=== PATIENT | male | born 1945 | race Caucasian/White ===

== ENCOUNTER 2019-07-19 09:43 | Emergency (ER) | payer OTHER ==
[~2019-07-19] VITALS: Ht 180.3 cm; Wt 123.4 kg
[2019-07-19 10:23] LABS: BASO # 0.1 10*3/uL (0.0-0.1); BASO % 0.6 % (0.0-1.0); EOS # 0.2 10*3/uL (0.0-0.4); HEMOGLOBIN 13.2 g/dl (14.0-18.0); LYMPH # 1.5 10*3/uL (1.3-4.4); LYMPH % 18.1 % (27.0-41.0); MEAN CELL VOLUME 86.3 fl (80.0-94.0); MEAN CORPUSCULAR HGB 27.8 pg (27.0-31.0); MEAN CORPUSCULAR HGB CONC 32.2 g/dl (33.0-37.0); MEAN PLATELET VOLUME 10.6 fl (9.6-12.3); MONO # 0.5 10*3/uL (0.1-1.0); MONO % 6.2 % (3.0-9.0); NEUT # 6.2 10*3/uL (2.3-7.9); NEUT % 72.9 % (47.0-73.0); PLATELET COUNT AUTOMATED 257 10*3/uL (130-400); RED BLOOD COUNT 4.75 10*6/uL (4.50-5.90); RED CELL DISTRI WIDTH 13.8 % (0-14.5); WHITE BLOOD COUNT 8.4 10*3/uL (4.8-10.8)
[2019-07-19 10:33] LABS: ACT PARTIAL THROMBO TIME 25.4 SECONDS (20.0-32.1)
[2019-07-19 10:40] LABS: ALBUMIN 3.7 gm/dl (3.1-4.5); BUN 16 mg/dl (7-24); CHLORIDE 102 mmol/L (98-107); CREATININE 1.36 mg/dL (0.70-1.30); POTASSIUM 2.9 mmol/L (3.5-5.1); SGPT/ALT 25 U/L (12-78); SODIUM 145 mmol/L (136-145)
[2019-07-19 10:42] LABS: ALKALINE PHOSPHATASE 105 U/L (45-117); SGOT/AST 15 IU/L (3-35)
[2019-07-19] MEDS ORDERED: MAGNESIUM OXID420 M1 PO (11:52)
[2019-07-19] MEDS ORDERED: POTASSIUM CHLO20 ME3 PO (11:52)
== END 2019-07-19 11:57 | disposition home or self-care (01) ==
LOC: ED 09:43
PROVIDERS: Emergency Medicine
DX: E83.42 Hypomagnesemia (principal); E87.6 Hypokalemia; R79.1 Abnormal coagulation profile; I10 Essential (primary) hypertension; E11.9 Type 2 diabetes mellitus without complications; Z91.040 Latex allergy status; Z87.891 Personal history of nicotine dependence

== ENCOUNTER 2019-09-03 11:27 | Inpatient (IN) | payer OTHER, MEDICARE ==
[~2019-09-03] VITALS: Ht 172.7 cm; Wt 122.5 kg
[2019-09-03 11:27] VITALS: BP 154/74
[~2019-09-03 11:27] MED LIST: MAGNESIUM OXID420 M1 PO; POTASSIUM CHLO20 ME3 PO
[2019-09-03 12:03] LABS: BASO % 0.5 % (0.0-1.0); EOS # 0.1 10*3/uL (0.0-0.4); EOS % 1.5 % (1.0-4.0); HEMATOCRIT 40.4 % (42.0-52.0); LYMPH # 1.3 10*3/uL (1.3-4.4); LYMPH % 15.8 % (27.0-41.0); MEAN CELL VOLUME 86.5 fl (80.0-94.0); MEAN CORPUSCULAR HGB 27.8 pg (27.0-31.0); MEAN CORPUSCULAR HGB CONC 32.2 g/dl (33.0-37.0); MEAN PLATELET VOLUME 10.9 fl (9.6-12.3); MONO # 0.5 10*3/uL (0.1-1.0); MONO % 6.5 % (3.0-9.0); NEUT # 6.2 10*3/uL (2.3-7.9); NEUT % 75.5 % (47.0-73.0); PLATELET COUNT AUTOMATED 217 10*3/uL (130-400); RED BLOOD COUNT 4.67 10*6/uL (4.50-5.90); WHITE BLOOD COUNT 8.3 10*3/uL (4.8-10.8)
[2019-09-03 12:17] LABS: INTERNATIONAL NORM RATIO 1.1 (2.0-3.5)
--- NOTE | 2019-09-03 12:18 | NUR ---
RESTING IN BED SEMI FOWLERS POSITION, EYES CLOSED, RESPS EASY. AT BEDSIDE.
[2019-09-03 12:20] LABS: ALBUMIN 3.6 gm/dl (3.1-4.5); ALKALINE PHOSPHATASE 90 U/L (45-117); BUN 13 mg/dl (7-24); CHLORIDE 102 mmol/L (98-107); CREATININE 1.21 mg/dL (0.70-1.30); POTASSIUM 2.8 mmol/L (3.5-5.1); SGOT/AST 19 IU/L (3-35); SGPT/ALT 22 U/L (12-78); SODIUM 143 mmol/L (136-145); TOTAL PROTEIN 6.9 gm/dL (6.4-8.2)
[2019-09-03 12:22] LABS: TROPONIN I 0.056 ng/ml (<0.045)
[2019-09-03 13:35] VITALS: BP 160/77
--- NOTE | 2019-09-03 13:52 | NUR ---
[facility] , under the services of SANTANA Blanc DO with a diagnosis of ELECTROLYTE IMBALANCE. Chief complaint is TINGLING/NUMBNESS. Patient arrived via bed from ER. Monitor applied. Initial assessment completed. Vital signs taken and recorded. SANTANA BLANC DO notified of admission to the unit. Orders received. See assessment for past medical history, medications and allergies. Patient and/or family oriented to unit. [facility]. Clothing/patient valuable form completed. PAVITHRA LEBRON
[2019-09-03 14:33] VITALS: BP 142/64
[2019-09-03] MEDS ORDERED: POTASSIUM CHLO20 ME4 PO (15:05)
--- NOTE | 2019-09-03 15:24 | NUR ---
DR ORLANDO BNOTIFIED OF CRITICAL TROPONIN.
[2019-09-03 15:59] LABS: ALKALINE PHOSPHATASE 94 U/L (45-117); BUN 12 mg/dl (7-24); CHLORIDE 100 mmol/L (98-107); CREATININE 1.24 mg/dL (0.70-1.30); POTASSIUM 3.2 mmol/L (3.5-5.1); SGOT/AST 20 IU/L (3-35); SGPT/ALT 23 U/L (12-78); SODIUM 144 mmol/L (136-145); TOTAL PROTEIN 7.4 gm/dL (6.4-8.2)
[2019-09-03 16:00] VITALS: BP 98/74
--- NOTE | 2019-09-03 16:02 | NUR ---
DR ORLANDO CALLED AND NOTIFIED OF CRITICAL CALCIUM
--- NOTE | 2019-09-03 17:29 | NUR ---
DR ORLANDO NOTIFIED OF CRITICAL TROPONIN
--- NOTE | 2019-09-03 17:40 | NUR ---
DR RANDOLPH PAGED FOR CONSULT VIA ANSWERING SERVICE
[2019-09-03 20:00] VITALS: BP 157/68
[2019-09-03 20:12] LABS: COLOR YELLOW (YELLOW)
[2019-09-03 20:13] LABS: BILIRUBIN NEGATIVE (NEGATIVE); BLOOD NEGATIVE (NEGATIVE); CLARITY CLEAR (CLEAR); GLUCOSE NEGATIVE (NEGATIVE); KETONE NEGATIVE (NEGATIVE); LEUKO ESTERASE NEGATIVE (NEGATIVE); NITRITE NEGATIVE (NEGATIVE); PH 6.5 (5.0-9.0); SPECIFIC GRAVITY 1.015 (1.005-1.030); UROBILINOGEN 0.2 E.U./dl (0.2-1.0)
[2019-09-03 21:09] LABS: ALBUMIN 3.6 gm/dl (3.1-4.5); ALKALINE PHOSPHATASE 90 U/L (45-117); BUN 14 mg/dl (7-24); CHLORIDE 101 mmol/L (98-107); CREATININE 1.31 mg/dL (0.70-1.30); POTASSIUM 3.2 mmol/L (3.5-5.1); SGOT/AST 15 IU/L (3-35); SGPT/ALT 22 U/L (12-78); SODIUM 142 mmol/L (136-145); TOTAL PROTEIN 6.8 gm/dL (6.4-8.2)
--- NOTE | 2019-09-03 21:46 | NUR ---
NOTIFIED OF CRITICAL CALCIUM OF 6.9. NEW ORDERS RECEIVED.
--- NOTE | 2019-09-03 22:00 | NUR ---
24 HOUR URINE BEGAN AT THIS TIME.
[2019-09-04] VITALS: BP 151/61
--- NOTE | 2019-09-04 02:48 | NUR ---
24 HR chart check completed.
[2019-09-04 06:15] LABS: BASO # 0.1 10*3/uL (0.0-0.1); BASO % 0.8 % (0.0-1.0); EOS # 0.1 10*3/uL (0.0-0.4); EOS % 1.7 % (1.0-4.0); HEMATOCRIT 40.9 % (42.0-52.0); LYMPH # 1.2 10*3/uL (1.3-4.4); LYMPH % 15.5 % (27.0-41.0); MEAN CELL VOLUME 86.1 fl (80.0-94.0); MEAN CORPUSCULAR HGB 27.4 pg (27.0-31.0); MEAN CORPUSCULAR HGB CONC 31.8 g/dl (33.0-37.0); MEAN PLATELET VOLUME 11.1 fl (9.6-12.3); MONO # 0.5 10*3/uL (0.1-1.0); NEUT # 5.7 10*3/uL (2.3-7.9); NEUT % 74.7 % (47.0-73.0); PLATELET COUNT AUTOMATED 245 10*3/uL (130-400); RED BLOOD COUNT 4.75 10*6/uL (4.50-5.90); WHITE BLOOD COUNT 7.6 10*3/uL (4.8-10.8)
[2019-09-04 06:17] LABS: ALBUMIN 3.7 gm/dl (3.1-4.5); BUN 14 mg/dl (7-24); CHLORIDE 103 mmol/L (98-107); CHOLESTEROL 115 mg/dL (<200); CREATININE 1.19 mg/dL (0.70-1.30); PHOSPHOROUS 3.2 mg/dL (2.5-4.9); SGOT/AST 15 IU/L (3-35); SGPT/ALT 21 U/L (12-78); SODIUM 142 mmol/L (136-145); TOTAL PROTEIN 6.8 gm/dL (6.4-8.2); TRIGLYCERIDES 92 mg/dl (<150); VLDL CHOLESTEROL 18 mg/dL (6-40)
[2019-09-04 06:23] LABS: ALKALINE PHOSPHATASE 82 U/L (45-117); FREE T4 1.06 ng/dl (0.76-1.46); HDL CHOLESTEROL 39 mg/dl (40-60); LDL CHOLESTEROL 58 mg/dL (9-159)
--- NOTE | 2019-09-04 06:59 | NUR ---
NOTIFIED OF PTS POTASSIUM LEVEL OF 3.0
--- NOTE | 2019-09-04 07:20 | NUR ---
ARRIVED ON SHIFT,INTRODUCED TO PATIENT,BED IN LOW POSITION. WHEEL LOCKS ENGAGED, CALL LIGHT WITHIN REACH, PATIENT AGREEABLE TO STUDENT NURSE BEING ASSIGNED, NO NEEDS VOICED AT THIS TIME, WHITE BOARD UPDATED.
[2019-09-04 08:00] VITALS: BP 148/62
--- NOTE | 2019-09-04 08:16 | NUR ---
PATIENT RESTING IN BED COMFORTABLY AT TIME OF ASSESSMENT, NO COMPLAINTS AT THIS TIME, WILL CONTINUE TO MONITOR FOR S/S OF PAIN AND DISTRESS. MARC TAYLOR SPNRCC
--- NOTE | 2019-09-04 08:54 | NUR ---
Shift chart check completed.
--- NOTE | 2019-09-04 09:52 | NUR ---
PATIENT SITTING UP IN BED, EKG COMPLETED, WAITING FOR FAMILY TO VISIT BEFORE GETTING CLEANED UP. MARC TAYLOR [facility]
[2019-09-04] MEDS ORDERED: ATORVASTATIN CA80 M1 PO (09:58)
[2019-09-04] MEDS ORDERED: NEURONTIN300 MG PO (09:59)
[2019-09-04] MEDS ORDERED: ASPIR LOW81 MG PO (09:59)
[2019-09-04] MEDS ORDERED: OMEPRAZOLE MAGN20 MG PO (10:01)
[2019-09-04] MEDS ORDERED: B121000 MCG/1 IM (10:03)
[2019-09-04] MEDS ORDERED: Nizoral 2%15 GM T (10:04)
[2019-09-04] MEDS ORDERED: INSULIN AS100 UNIT/3 SQ (10:05)
[2019-09-04] MEDS ORDERED: LISINOPRIL40 MG PO (10:07)
[2019-09-04] MEDS ORDERED: METFORMIN HCL500 M2 PO (10:09)
[2019-09-04] MEDS ORDERED: MIRTAZAPINE45 MG PO (10:10)
[2019-09-04] MEDS ORDERED: CHLORTHALIDONE25 MG PO (10:11)
[2019-09-04] MEDS ORDERED: AMLODIPINE BESY10 MG PO (10:12)
[2019-09-04] MEDS ORDERED: ALOGLIPTIN25 MG PO (10:13)
[2019-09-04] MEDS ORDERED: LANTUS SOL100 UNIT/1 SQ (10:16)
[2019-09-04] MEDS ORDERED: MELATONIN3 M3 PO (10:17)
[2019-09-04] MEDS ORDERED: VITAMIN D35000 UNIT PO (10:26)
[2019-09-04 12:00] VITALS: BP 156/64
--- NOTE | 2019-09-04 12:00 | NUR ---
PATIENT UP IN CHAIR AT THIS TIME VISITING FAMILY, NO COMPLAINTS OF PAIN. MARC TAYLOR SPNRCC
[2019-09-04] MEDS ORDERED: POTASSIUM CHLO20 ME3 PO (13:31)
[2019-09-04] MEDS ORDERED: CALCIUM500 M1 PO (13:31)
[2019-09-04] MEDS ORDERED: MAGNESIUM500 MG PO (13:31)
--- NOTE | 2019-09-04 14:00 | NUR ---
DOCTOR IN TO SEE PT MARC TAYLOR SPNRCC
[2019-09-04 14:13] LABS: ALBUMIN 3.7 gm/dl (3.1-4.5); ALKALINE PHOSPHATASE 87 U/L (45-117); BUN 14 mg/dl (7-24); CHLORIDE 103 mmol/L (98-107); CREATININE 1.33 mg/dL (0.70-1.30); POTASSIUM 3.5 mmol/L (3.5-5.1); SGOT/AST 20 IU/L (3-35); SGPT/ALT 23 U/L (12-78); SODIUM 139 mmol/L (136-145)
--- NOTE | 2019-09-04 14:17 | NUR ---
24 HOUR URINE REMAINS IN PROGRESS MARC TAYLOR SPNRCC
--- NOTE | 2019-09-04 14:49 | NUR ---
Discharge instructions reviewed with patient/family. Patient receptive and verbalizes understanding. Follow-up care arranged. Written instructions given to patient/family. IV BOTH ARMS REMOVED, TELEMETRY REMOVED, PATIENT REFUSED W/C FOR DISCHARGE. DAVIS BAUTISTA
== END 2019-09-04 14:49 | disposition home or self-care (01) | DRG 640 ==
LOC: ED 11:27 → 4E 12:52 → EDHOLD 12:52 → 4E 13:27
PROVIDERS: Family Medicine; Internal Medicine; ADMIT Internal Medicine
DX: E83.51 Hypocalcemia (principal); N17.0 Acute kidney failure with tubular necrosis; E87.6 Hypokalemia; E83.42 Hypomagnesemia; D64.9 Anemia, unspecified; E11.65 Type 2 diabetes mellitus with hyperglycemia; E78.5 Hyperlipidemia, unspecified; I12.9 Hypertensive chronic kidney disease with stage 1 through stage 4 chronic kidney disease, or unspecified chronic kidney disease; K21.9 Gastro-esophageal reflux disease without esophagitis; N18.3 Chronic kidney disease, stage 3 (moderate); F17.220 Nicotine dependence, chewing tobacco, uncomplicated; Z79.4 Long term (current) use of insulin; Z71.6 Tobacco abuse counseling

== ENCOUNTER → 2019-09-06 | Outpatient (CLI) | payer MEDICARE ==
[~2019-09-06] MED LIST changes: +ALOGLIPTIN25 MG PO; +AMLODIPINE BESY10 MG PO; +ASPIR LOW81 MG PO; +ATORVASTATIN CA80 M1 PO; +B121000 MCG/1 IM; +CALCIUM500 M1 PO; +CHLORTHALIDONE25 MG PO; +INSULIN AS100 UNIT/3 SQ; +LANTUS SOL100 UNIT/1 SQ; +LISINOPRIL40 MG PO; +MAGNESIUM500 MG PO; +MELATONIN3 M3 PO; +METFORMIN HCL500 M2 PO; +MIRTAZAPINE45 MG PO; +NEURONTIN300 MG PO; +Nizoral 2%15 GM T; +OMEPRAZOLE MAGN20 MG PO; +POTASSIUM CHLO20 ME4 PO; +VITAMIN D35000 UNIT PO
[2019-09-06 09:54] LABS: BUN 13 mg/dl (7-24); CHLORIDE 105 mmol/L (98-107); CREATININE 1.25 mg/dL (0.70-1.30); SGOT/AST 21 IU/L (3-35); SGPT/ALT 28 U/L (12-78); SODIUM 139 mmol/L (136-145); TOTAL PROTEIN 7.8 gm/dL (6.4-8.2)
[2019-09-06 09:56] LABS: ALKALINE PHOSPHATASE 113 U/L (45-117)
[2019-09-06 10:16] LABS: POTASSIUM 4.6 mmol/L (3.5-5.1)
== END | disposition home or self-care (01) ==
LOC: LAB 08:33
PROVIDERS: Family Medicine
DX: E87.6 Hypokalemia (principal); E83.51 Hypocalcemia

== ENCOUNTER 2019-10-14 20:55 | Inpatient (IN) | payer OTHER ==
[~2019-10-14] VITALS: Ht 180.3 cm; Wt 120.8 kg
[2019-10-14 21:06] VITALS: BP 121/53
[2019-10-14] MEDS ORDERED: OMEPRAZOLE20 M2 PO (21:32)
[2019-10-14] MEDS ORDERED: MAGNESIUM500 MG PO (21:33)
[2019-10-14 21:34] LABS: BASO # 0.1 10*3/uL (0.0-0.1); BASO % 0.7 % (0.0-1.0); EOS # 0.1 10*3/uL (0.0-0.4); EOS % 0.9 % (1.0-4.0); HEMATOCRIT 44.8 % (42.0-52.0); LYMPH # 2.1 10*3/uL (1.3-4.4); LYMPH % 23.3 % (27.0-41.0); MEAN CELL VOLUME 88.9 fl (80.0-94.0); MEAN CORPUSCULAR HGB 28.2 pg (27.0-31.0); MEAN CORPUSCULAR HGB CONC 31.7 g/dl (33.0-37.0); MEAN PLATELET VOLUME 10.6 fl (9.6-12.3); MONO # 0.7 10*3/uL (0.1-1.0); MONO % 7.3 % (3.0-9.0); NEUT # 6.1 10*3/uL (2.3-7.9); NEUT % 67.6 % (47.0-73.0); PLATELET COUNT AUTOMATED 264 10*3/uL (130-400); RED BLOOD COUNT 5.04 10*6/uL (4.50-5.90); RED CELL DISTRI WIDTH 14.9 % (0-14.5)
[2019-10-14 21:54] LABS: ALBUMIN 3.9 gm/dl (3.1-4.5); CREATININE 1.95 mg/dL (0.70-1.30); TOTAL PROTEIN 7.2 gm/dL (6.4-8.2); TROPONIN I 0.018 ng/ml (<0.045)
--- NOTE | 2019-10-15 00:01 | NUR ---
INFUSION OF NS CONTINUES @150ML/HR.
--- NOTE | 2019-10-15 00:20 | NUR ---
PER PT VERBAL CONSENT, HIS WAS CONTACTED BY THIS RN AND PROVIDED UPDATE ON PT PLAN OF CARE.
[2019-10-15 00:23] VITALS: BP 119/62
--- NOTE | 2019-10-15 00:30 | NUR ---
PT DENIES ANY OPEN WOUNDS SORES OR CUTS AT THIS TIME.
[2019-10-15 00:38] VITALS: BP 157/65
--- NOTE | 2019-10-15 00:38 | NUR ---
A 74, admitted to , under the services of ARIA Gross DO with a diagnosis of VA PT. ROUTINE LAB WORK DONE 10/13, PATIENT CALLED D/T HYPERKALEMIA. Chief complaint is ABNORMAL LABS. Patient arrived via bed from ER. Monitor applied. Initial assessment completed. Vital signs taken and recorded. ARIA GROSS DO notified of admission to the unit. Orders received. See assessment for past medical history, medications and allergies. Patient and/or family oriented to unit. [facility] visitation policy reviewed. Clothing/patient valuable form completed. JC DEMPSEY
[2019-10-15] MEDS ORDERED: PEPCID40 MG PO (00:41)
[2019-10-15] MEDS ORDERED: MAGNESIUM OXID500 MG PO (00:43)
[2019-10-15 01:00] VITALS: BP 157/65
--- NOTE | 2019-10-15 01:07 | NUR ---
PATIENT BROUGHT IN MED LIST FROM HOME. PATIENT UNSURE OF DOSAGE OF VITAMIN D AND CALCIUM. KNOWS DOSAGES OF INSULIN, BUT UNSURE WHAT INSULINS THEY ARE.
[2019-10-15 01:10] LABS: CREATININE 1.7 mg/dL (0.70-1.30)
[2019-10-15 01:13] LABS: POTASSIUM 6.2 mmol/L (3.5-5.1)
--- NOTE | 2019-10-15 01:15 | NUR ---
PROVIDED WITH OJessica FOR CRITICAL BSG 48. PATIENT ASYMPTOMATIC
--- NOTE | 2019-10-15 02:00 | NUR ---
MEDS AGAIN REVIEWED WITH PATIENT. PER PATIENT, NO CHANGES SINCE ADMISSION END OF AUG THIS YR. UPDATED AND VERIFIED IN MED-REC
--- NOTE | 2019-10-15 02:00 | NUR ---
BSG RECHECKED D/T CRITICAL VALUE. BSG 100. PATIENT REMAINS ASYMPTOMATIC
--- NOTE | 2019-10-15 03:00 | NUR ---
SLEEPING. IV FLUIDS INFUSING.
--- NOTE | 2019-10-15 05:30 | NUR ---
DR MORALES PRESENT ON FLOOR, INFORMED MED REC UP TO DATE
--- NOTE | 2019-10-15 06:00 | NUR ---
RESTED SINCE ARRIVING TO FLOOR. IV FLUIDS INFUSING. CALL LIGHT WITHIN REACH. NO VOICED COMPLAINTS THIS SHIFT
[2019-10-15 06:07] LABS: BASO # 0.1 10*3/uL (0.0-0.1); BASO % 0.8 % (0.0-1.0); EOS # 0.1 10*3/uL (0.0-0.4); EOS % 1.2 % (1.0-4.0); HEMATOCRIT 43.5 % (42.0-52.0); LYMPH # 2.3 10*3/uL (1.3-4.4); LYMPH % 26.1 % (27.0-41.0); MEAN CELL VOLUME 89.9 fl (80.0-94.0); MEAN CORPUSCULAR HGB 28.5 pg (27.0-31.0); MEAN CORPUSCULAR HGB CONC 31.7 g/dl (33.0-37.0); MEAN PLATELET VOLUME 10.9 fl (9.6-12.3); MONO # 0.7 10*3/uL (0.1-1.0); MONO % 8.1 % (3.0-9.0); NEUT # 5.5 10*3/uL (2.3-7.9); NEUT % 63.5 % (47.0-73.0); PLATELET COUNT AUTOMATED 252 10*3/uL (130-400); RED BLOOD COUNT 4.84 10*6/uL (4.50-5.90); WHITE BLOOD COUNT 8.6 10*3/uL (4.8-10.8)
[2019-10-15 06:08] LABS: ALBUMIN 3.8 gm/dl (3.1-4.5); CREATININE 1.67 mg/dL (0.70-1.30); FREE T4 0.99 ng/dl (0.76-1.46); PHOSPHOROUS 4.3 mg/dL (2.5-4.9)
[2019-10-15 06:13] LABS: THYROID STIM HORMONE (HS) 6.32 uIU/ml (0.358-4.75)
[2019-10-15 06:18] LABS: POTASSIUM 6.7 mmol/L (3.5-5.1)
--- NOTE | 2019-10-15 07:20 | NUR ---
DR RANDOLPH CONTACTED REGARDING CONSULT. LABS REVIEWED. NEW ORDERS RECEIVED
--- NOTE | 2019-10-15 09:13 | NUR ---
Notified [facility] of patient's admission. Awaiting return call.
--- NOTE | 2019-10-15 09:50 | NUR ---
Occupational therapy orders received and OT screening completed. Patient reported he lives at home with his , is independent with ADLs and driving, and he "carry my cane". Patient demonstrated independent ADLs, transfers, and functional mobility. Patient notified of his discharge from occupational therapy and did not have questions or concerns about OT discharge or returning home. Thank you for the referral. Natacha Ha, OTR/L
--- NOTE | 2019-10-15 09:55 | NUR ---
PHYSICAL THERAPY Physical Therapy evaluation completed on 4E with full evaluation to follow. Low complexity PT evaluation only, [id number]. Patient independent in room and no PT needs at this time. Thank you for this referral. Jennifer Robin,PT,DPT
--- NOTE | 2019-10-15 10:08 | NUR ---
Bead Machine Operator called to speak with patient. Patient states lives at home with his . There are 0 steps in the home. Physician: Dr. Marcella Pierre Pharmacy: [place] or [facility] in [place] Home health services: none Patient's level of ADLs: MINIMAL ASSIST Patient has working utilities: yes DME: cane Follow-up physician's appointment after d/c: will be made by the hospitalist nurse director upon discharge Does patient want to access PORTAL?: no Discharge plan discussed with patient. He lives at home with his . He is independent in his ADLs and ambulates with a cane. Discussed home health care services and he denies any home needs. When medically stable he will be discharged to home. He states he will drive himself home as his car in here in the ER parking lot. [facility]
[2019-10-15 12:00] VITALS: BP 139/82
[2019-10-15 13:30] LABS: CREATININE 1.66 mg/dL (0.70-1.30)
[2019-10-15 13:40] LABS: POTASSIUM 6.7 mmol/L (3.5-5.1)
[2019-10-15 16:00] VITALS: BP 151/65
--- NOTE | 2019-10-15 17:25 | NUR ---
Patient requested some peanut butter/crackers. Educated patient that peanuts are a rich source of potassium and is not a good choice. Printed a list of foods high in potassium and encouraged patient to monitor his intake as we are trying to lower his K+ level.
[2019-10-15 20:00] VITALS: BP 147/73
--- NOTE | 2019-10-15 20:00 | NUR ---
RESTING IN BED WITH NO ACUTE DISTRESS NOTED. RESPIRATIONS EASY. LUNGS DIMINISHED, CLEAR. PULSE OX 95% RA. IV FLUIDS INFUSING PER ORDER. CALL LIGHT WITHIN REACH. NO VOICED COMPLAINTS
[2019-10-16] VITALS: BP 155/57
--- NOTE | 2019-10-16 | NUR ---
RESTING IN BED. RESPIRATIONS EASY. VSS. CALL LIGHT WITHIN REACH
--- NOTE | 2019-10-16 | NUR ---
24 HR chart check completed.
--- NOTE | 2019-10-16 06:00 | NUR ---
SLEPT THROUGHOUT NIGHT WITH NO DISTRESS NOTED. RESPIRATIONS EASY. IV FLUIDS MAINTAINED. CALL LIGHT WITHIN REACH. NO VOICED COMPLAINTS THIS SHIFT
[2019-10-16 06:08] LABS: BASO # 0.1 10*3/uL (0.0-0.1); BASO % 0.8 % (0.0-1.0); EOS # 0.2 10*3/uL (0.0-0.4); EOS % 2.1 % (1.0-4.0); LYMPH # 1.9 10*3/uL (1.3-4.4); LYMPH % 22.6 % (27.0-41.0); MEAN CELL VOLUME 90.2 fl (80.0-94.0); MEAN CORPUSCULAR HGB 28.2 pg (27.0-31.0); MEAN CORPUSCULAR HGB CONC 31.3 g/dl (33.0-37.0); MEAN PLATELET VOLUME 10.8 fl (9.6-12.3); MONO # 0.6 10*3/uL (0.1-1.0); NEUT # 5.6 10*3/uL (2.3-7.9); NEUT % 67.3 % (47.0-73.0); PLATELET COUNT AUTOMATED 260 10*3/uL (130-400); RED CELL DISTRI WIDTH 14.5 % (0-14.5); WHITE BLOOD COUNT 8.3 10*3/uL (4.8-10.8)
[2019-10-16 06:27] LABS: CREATININE 1.62 mg/dL (0.70-1.30)
[2019-10-16 06:28] LABS: POTASSIUM 5.4 mmol/L (3.5-5.1)
[2019-10-16] MEDS ORDERED: LIPITOR20 MG PO (07:25)
[2019-10-16] MEDS ORDERED: BUSPIRONE HCL10 MG PO (07:26)
[2019-10-16] MEDS ORDERED: LIPITOR80 MG PO (07:28)
[2019-10-16 08:00] VITALS: BP 126/56
--- NOTE | 2019-10-16 10:15 | NUR ---
Mineral Engineer spoke to patient via phone. No new needs or request at this time. He denies any home needs. When medically stable he will be discharged to home.
[2019-10-16 12:00] VITALS: BP 142/52
[2019-10-16 13:00] LABS: CREATININE 1.53 mg/dL (0.70-1.30)
[2019-10-16 13:07] LABS: POTASSIUM 6.3 mmol/L (3.5-5.1)
--- NOTE | 2019-10-16 14:26 | NUR ---
NOTIFIED REGARDING 6 BEAT RUN OF V-TACH. PATIENT ASYMPTOMATIC. WILL CONTINUE TO MONITOR.
--- NOTE | 2019-10-16 15:25 | NUR ---
IN TO SEE PATIENT.
[2019-10-16 16:00] VITALS: BP 153/83
[2019-10-16 20:00] VITALS: BP 150/83
[2019-10-17] VITALS: BP 143/89
[2019-10-17 06:00] LABS: CREATININE 1.56 mg/dL (0.70-1.30); POTASSIUM 5.4 mmol/L (3.5-5.1)
[2019-10-17 06:32] LABS: BASO # 0.1 10*3/uL (0.0-0.1); BASO % 0.9 % (0.0-1.0); EOS # 0.1 10*3/uL (0.0-0.4); EOS % 1.7 % (1.0-4.0); HEMATOCRIT 47.7 % (42.0-52.0); LYMPH # 1.9 10*3/uL (1.3-4.4); LYMPH % 22.9 % (27.0-41.0); MEAN CELL VOLUME 88.3 fl (80.0-94.0); MEAN CORPUSCULAR HGB 27.6 pg (27.0-31.0); MEAN CORPUSCULAR HGB CONC 31.2 g/dl (33.0-37.0); MEAN PLATELET VOLUME 10.7 fl (9.6-12.3); MONO # 0.6 10*3/uL (0.1-1.0); MONO % 7.2 % (3.0-9.0); NEUT # 5.5 10*3/uL (2.3-7.9); NEUT % 67.2 % (47.0-73.0); PLATELET COUNT AUTOMATED 259 10*3/uL (130-400); RED CELL DISTRI WIDTH 14.4 % (0-14.5); WHITE BLOOD COUNT 8.2 10*3/uL (4.8-10.8)
--- NOTE | 2019-10-17 07:50 | NUR ---
UPDATED ON PLAN OF CARE.
[2019-10-17 08:00] VITALS: BP 100/68
--- NOTE | 2019-10-17 09:46 | NUR ---
CALLED IN AND UPDATED ON PLAN OF CARE. NEW ORDERS RECEIVED.
[2019-10-17] MEDS ORDERED: VELTASSA8.4 GM PO (09:55)
--- NOTE | 2019-10-17 10:51 | NUR ---
Spoke to [facility] pharmacy at [phone] regarding cost of Veltassa 8.4 GM daily for 30 days. Cost would be $1200 without insurance as they do not have his insurance information. They do not run anything through the [place]. Patient states he does have Medicare and will bring his prescription information with him to pickers material handlers the prescription. He states he is not able to afford $1200. Hospitalist nurse director notified. Informed patient to call CM if he is still not able to afford the medication, gave business card, he verbalized an understanding.
--- NOTE | 2019-10-17 11:22 | NUR ---
Discharge instructions reviewed with patient/family. Patient receptive and verbalizes understanding. Follow-up care arranged. Written instructions given to patient/family. MARCO ANTONIO PRIEST.
--- NOTE | 2019-10-17 11:23 | NUR ---
PATIENTS CALLED AT THIS TIME REGARDING DISCHARGE.
--- NOTE | 2019-10-17 13:51 | NUR ---
Received call from nurse regarding patient call the floor to let them know the Veltassa medication was not covered by Medicare and the cost would be $1200 which he is not able to afford. Attempted to reach our pharmacy with no success. Notified hospitalist nurse director, she stated she reached out to Dr. Barkley's office who is going to get a month supply for free from the [facility]. Called patient's home to notify him. He was not available but information was passed to his who answered the phone.
== END 2019-10-17 11:23 | disposition home or self-care (01) | DRG 640 ==
LOC: ED 20:55 → 4E 23:07 → EDHOLD 23:07 → 4E 10-15 00:09
PROVIDERS: Family Medicine; Internal Medicine; Nurse Practitioner Family; Student in an Organized Health Care Education/Training Program; ADMIT Internal Medicine
DX: E87.5 Hyperkalemia (principal); N17.0 Acute kidney failure with tubular necrosis; E11.65 Type 2 diabetes mellitus with hyperglycemia; E87.2 Acidosis; E83.41 Hypermagnesemia; E78.5 Hyperlipidemia, unspecified; I12.9 Hypertensive chronic kidney disease with stage 1 through stage 4 chronic kidney disease, or unspecified chronic kidney disease; J45.909 Unspecified asthma, uncomplicated; N18.3 Chronic kidney disease, stage 3 (moderate); K21.9 Gastro-esophageal reflux disease without esophagitis; E11.649 Type 2 diabetes mellitus with hypoglycemia without coma; Z82.49 Family history of ischemic heart disease and other diseases of the circulatory system; Z72.0 Tobacco use; Z79.899 Other long term (current) drug therapy; Z79.4 Long term (current) use of insulin; Z79.82 Long term (current) use of aspirin; Z96.641 Presence of right artificial hip joint